=== PATIENT | female | born 1950 | race Caucasian/White ===

== ENCOUNTER 2021-04-03 15:05 | Outpatient (CLI) | payer OTHER, SELFPAY ==
--- NOTE | ~2021-04-03 | CT_ITS ---
EXAMINATION: CTA abdomen pelvis DATE: 04/03/2021 17:23 CDT INDICATION: Abdominal aortic aneurysm without rupture TECHNIQUE: Computed tomographic angiography (CTA) of the abdomen and pelvis was performed with 100 mL Omnipaque-350 intravenous contrast. The dose-length product was 530.31 mGy-cm. Maximum intensity pro jection 3D-reconstructions of the aorta and other arteries were constructed by the technologist on a separate workstation. Automated exposure control and iterative reconstruction technique were employed . COMPARISON: CT dated 10/21/2017. FINDINGS: There is dependent atelectasis. Calcified granulomas in the right middle and lower lobes. C ardiomegaly. There are median sternotomy wires. No significant pleural or pericardial effusion. Small hiatal hernia. The liver, pancreas, adrenal glands are unremarkable. There is bilateral renal atroph y. There are calcified granulomas of the spleen. There is an aorto biiliac endoluminal stent graft be ginning at the level of the renal arteries extending into the common iliac arteries. Aneurysm sac has increased measuring 6.1 x 6.7 cm compared with 5.9 x 6.2 cm on prior examination. There is contrast outside of the endoluminal stent originating just below the right renal artery. There has been interv al placement of an additional stent superiorly. This is new since prior examination. Gallbladder is present. Nonobstructive bowel gas pattern. No abnormal pelvic masses or fluid collecti ons. Uterus not identified, likely surgically absent. No pathologically enlarged lymph nodes. Mild jordi mbar spondylosis with grade 1 degenerative spondylolisthesis at L4-5. Mild superior endplate compress ion deformity of L2 is new since prior examination, although likely chronic. There is a left total hi p arthroplasty. IMPRESSION: 1. Increased size of infrarenal abdominal aortic aneurysm now measuring 6.1 x 6.7 cm post endoluminal stent graft with evidence for endoleak, likely type III, originating just below the level of the rig ht renal artery. Interval placement of new endoluminal graft in the upper abdominal aorta beginning j ust above the renal arteries. Reviewed, dictated and finalized at location A. IMPRESSION: 1. Increased size of infrarenal abdominal aortic aneurysm now measuring 6.1 x 6 .7 cm post endoluminal stent graft with evidence for endoleak, likely type III, originating just below the level of the right renal artery. Interval placement of new endoluminal graft in the upper abdominal aorta beginning just above the renal arteries.
[2021-04-03 15:47] LABS: Estimated Glomerular Filt Rate 49
== END 2021-04-03 15:06 | disposition home or self-care (01) ==
PROVIDERS: PCP Nurse Practitioner Family; Visit Provider Specialist
DX: I71.4 Abdominal aortic aneurysm, without rupture (principal)
CPT/HCPCS: 74174; Q9967

== ENCOUNTER → 2023-09-23 08:59 | Outpatient (CLI) | payer MEDICARE, MEDICAID, SELFPAY ==
--- NOTE | ~2023-09-23 | CT_ITS ---
EXAMINATION: CT lumbar spine wo con DATE: 09/23/2023 09:15 INDICATION: Low back pain. Peripheral vascular disease. TECHNIQUE: Computed tomography (CT) of the lumbar spine was performed without intravenous contrast. A utomated exposure control and iterative reconstruction technique were employed. The dose-length produ ct was 672.46 mGy-cm. COMPARISON: None FINDINGS: Partially visualized is an abdominal aortic aneurysm with stent graft in expected position. There is 8 degrees dextrocurvature of thoracolumbar spine. There is 4 mm anterolisthesis of L4 on L5 . There is a chronic burst fracture of L2 with 2/5 loss of height and retropulsion of bone 2 mm into central spinal canal. There is moderately decreased disc height at T12-L1, mildly decreased disc heig ht at L2-L3, severely decreased disc height at L3-L4, and mildly decreased disc height at L4-L5 and L 5-S1. The following disc levels are specifically discussed: L1-L2: The disc is bulging. There is moderate bilateral facet joint osteoarthritis. There is mild kassidy ateral neural foraminal stenosis. There is mild central canal stenosis. L2-L3: The disc is bulging. There is moderate bilateral facet joint osteoarthritis. There is mild kassidy ateral neural foraminal stenosis. There is mild central canal stenosis. L3-L4: The disc is bulging. There is severe bilateral facet joint osteoarthritis. There is mild bilat eral neural foraminal stenosis. There is mild central canal stenosis. L4-L5: The disc is bulging. There is severe bilateral facet joint osteoarthritis. There is moderate b ilateral neural foraminal stenosis. There is severe central canal stenosis. L5-S1: The disc is bulging. There is severe bilateral facet joint osteoarthritis. There is mild bilat eral neural foraminal stenosis. There is mild central canal stenosis. IMPRESSION: 1. Severe lumbar spondylosis. Reviewed, dictated and finalized at location A. 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
== END ==
PROVIDERS: PCP Family Medicine; Visit Provider Family Medicine
DX: E11.610 Type 2 diabetes mellitus with diabetic neuropathic arthropathy (principal); E78.5 Hyperlipidemia, unspecified; E53.8 Deficiency of other specified B group vitamins; I73.9 Peripheral vascular disease, unspecified; M47.896 Other spondylosis, lumbar region
CPT/HCPCS: 72131

== ENCOUNTER 2023-10-15 12:02 | Outpatient (CLI) | payer MEDICARE, MEDICAID, SELFPAY ==
--- NOTE | ~2023-10-15 | US_ITS ---
US arterial ankle brachial ind INDICATION: Peripheral arterial disease. Type 2 diabetes. Hyperlipidemia. TECHNIQUE: Segmental pressures and plethysmographic and Doppler waveforms of the brachial and lower e xtremity arteries were obtained. COMPARISON: None. FINDINGS: Right and left brachial artery pressures of 137 mm Hg and 155 mm Hg, respectively, are concordant (no rmal difference <= 30 mmHg). The right ankle-brachial index (CARMEN) is 0.7 (normal >= 0.9-1.0). The right great toe-brachial index ( TBI) is 0.55 (normal >= 0.60). The left CARMEN is 0.7. The left TBI is 0.61. IMPRESSION: 1. Diminished bilateral ankle-brachial indices, consistent with mild peripheral arterial disease. Reviewed, dictated and finalized at location B. 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
== END 2023-10-15 12:03 | disposition home or self-care (01) ==
LOC: CHSIMG 12:04
PROVIDERS: PCP Family Medicine; Visit Provider Family Medicine
DX: E11.610 Type 2 diabetes mellitus with diabetic neuropathic arthropathy (principal); E78.5 Hyperlipidemia, unspecified; E63.8 Other specified nutritional deficiencies; I73.9 Peripheral vascular disease, unspecified; M54.9 Dorsalgia, unspecified
CPT/HCPCS: 93922

== ENCOUNTER 2024-10-11 14:28 | Outpatient (CLI) | payer MEDICARE, MEDICAID, SELFPAY ==
--- NOTE | ~2024-10-11 | XR_ITS ---
3 VIEWS THORACIC SPINE Ordering provider: Jeremiah Latif, [employer] INST[employer]ER History: . Thoracic radiculopathy . Comparison: None. FINDINGS: VERTEBRAL BODIES: Loss of height is seen in T7, T9 and T11 of about 50%. Otherwise, Normal height and alignment. No visible subluxation. DISK SPACES: Narrowing at the level of T7-T8, T8-T9, T9-T10 and T10-T11. Narrowing of T12-L1 and L1-L 2 is seen.. SOFT TISSUES: Stent graft is seen in the abdominal aorta. Postoperative changes in the mediastinum. C ardiomegaly. IMPRESSION: Multilevel compression fracture involving T7, T9 and T11 which may be acute or chronic. MRI evaluatio n is advised. Multilevel degenerative disc disease. Reviewed, dictated and finalized at location A. TH OUTCOMES LIAISON IMPRESSION: Multilevel compression fracture involving T7, T9 and T11 which may be acute or chronic. MRI evaluation is advised. Multilevel degenerative disc disease.
== END 2024-10-11 14:29 | disposition home or self-care (01) ==
PROVIDERS: PCP Family Medicine; Visit Provider Nurse Practitioner Family
DX: M54.14 Radiculopathy, thoracic region (principal); M51.34 Other intervertebral disc degeneration, thoracic region
CPT/HCPCS: 72072